=== PATIENT | male | born 1995 | race Asian ===

== ENCOUNTER 2017-06-04 05:13 | Emergency (ER) | payer BC ==
--- NOTE | 2017-06-04 05:35 | EDPHY ---
H & P HPI/ROS: Chief Complaint: Alcohol intoxication, vomiting HPI: 21-year-old male who was found on the hill intoxicated. Patient passed out after drinking. Is unable to ambulate on their own. Patient brought in by EMS for further evaluation. No obvious signs of trauma per EMS. Remainder of history is unobtainable secondary to the patient's intoxication. ROS: 10 point Review of Systems is negative except as noted in the HPI. PMH: None Medications: None Allergies: None Social History: Positive for alcohol Family History: non-contributory Physical Exam: Gen: Awake, alert, slurred speech, smells of alcohol HEENT: Abrasion on his left jewish, Dejesus tenderness. No neck pain. Patient states he fell over earlier. Denies loss of consciousness. Nose: no epistaxis or deformity Eyes: PERRLA, EOMI Mouth: Moist mucosa Neck: Supple, no step-offs or deformity Chest: Atraumatic, lungs clear to auscultation Heart: S1, S2 normal, no murmur Abd: Soft, non-tender, no guarding Back: Atraumatic Ext: no edema, atraumatic Skin: no rash Neuro: Sensation grossly intact, Strength 5/5 in bilateral upper and lower extremities (Ramin Cook) Constitutional: Initial Vital Signs Temperature (C) 36.7 C 06/04/17 05:35 Heart Rate 96 06/04/17 05:35 Respiratory Rate 18 06/04/17 05:35 Blood Pressure 165/87 H 06/04/17 05:35 O2 Sat (%) 97 06/04/17 05:35 O2 Delivery Mode Room Air Allergies/Adverse Reactions: No Known Allergies Allergy (Unverified 06/04/17 05:33) Home Medications: Medication Instructions Recorded NK [No Known Home Meds] 06/04/17 Medical Decision Making ED Course/Re-evaluation: Patient is now awake and appropriate. Ambulating unassisted to the bathroom. No current complaints. Patient is tolerating oral fluids. Patient is ready for discharge with sober ride. (Ramin Cook) Other Provider: [id number]: Patient has a abrasion over his left forehead and lateral eye. 1000: Ambulatory, fluent speech, clinically sober, extraocular motion intact, no headache or visual symptoms. Admits to alcohol but no other drugs. Stable for discharge. (Charlie Hall) Departure - Departure Disposition: Home, Routine, Self-Care Clinical Impression: Alcoholic intoxication Qualifiers: Complication of substance-induced condition: uncomplicated Qualified Code(s): F10.920 - Alcohol use, unspecified with intoxication, uncomplicated Facial abrasion Qualifiers: Encounter type: initial encounter Qualified Code(s): S00.81XA - Abrasion of other part of head, initial encounter Condition: Good Instructions: Head Injury (ED), Alcohol Intoxication (ED), Abrasion (ED) Referrals: Carito Gastelum MD [Medical Doctor] - As per Instructions
[2017-06-04 05:41] VITALS: TEMP 98.1
[2017-06-04 09:38] VITALS: BP 131/80; PULSE 89; RESP 16; O2SAT 96
== END 2017-06-04 10:01 | disposition home or self-care (01) ==
DX: F10.920 Alcohol use, unspecified with intoxication, uncomplicated (principal)